=== PATIENT | female | born 1970 | race Caucasian/White ===

== ENCOUNTER 2020-10-19 19:50 | Emergency (ER) | payer OTHER, SELFPAY ==
[2020-10-19 20:02] VITALS: BP 131/91; PULSE 91; RESP 14; TEMP 37.1; O2SAT 97; BMI 39.0
--- NOTE | 2020-10-19 20:14 | ED_ITS ---
HPI - COVID General: Chief Complaint: COVID symptoms Stated Complaint: covid symptoms Time Seen by Provider: 10/19/20 20:10 Triage information: Has fever, cough or shortness of breath . Exposure to COVID + person last 14 days History of Present Illness: HPI Narrative: Patient is a 50-year-old female comes to the ED with Covid symptoms. st medical history of hypertension and migraines. She endorses having a cough, loss of taste and smell, fever and some diarrhea that started approximately 1 week ago. Pa She denies any chest pain, shortness of breath, abdominal pain, nausea/vomiting, bladder or bowel symptoms. She takes Tylenol or ibuprofen at home to treat fevers. Patient describes her cough is sometimes productive with some green sputum, but mostly dry cough. COVID 19 common symptoms: positive fever(s), productive cough, body aches, loss of sense of smell and/or taste and diarrhea; negative chills, non-productive cough, dyspnea, fatigue, headache(s), throat pain, nasal congestion, nausea or vomiting COVID 19 other sytmptoms: negative chest pain COVID Results: SARS-CoV-2 RNA (RT-PCR) Pending 10/19/20 20:52 10/19/20 Review of Systems Const: Reports: fever(s) and body aches; Denies: chills or fatigue Eyes: Denies: change in vision or eye discomfort ENMT: Denies: throat pain, odynophagia, nasal discharge or nasal congestion Card: Denies: chest pain, palpitations, edema, swelling of feet/ankles, dyspnea on exertion or orthopnea Resp: Reports: productive cough; Denies: dyspnea or non-productive cough GI: Reports: diarrhea; Denies: abdominal pain, nausea, vomiting, constipation or hematochezia : Denies: flank pain, dysuria or hematuria Musc: Denies: neck pain, back pain or extremity swelling Skin/Breast: Denies: rash or new lesions Neuro: Denies: headache(s), numbness in extremities or weakness in extremities Physical Exam Const: COMMON NORMALS: no acute distress, patient oriented x3, healthy appearing and alert GENERAL APPEARANCE: cooperative and comfortable HENMT: COMMON NORMALS: normocephalic HEAD & SCALP: normocephalic MOUTH: Normal oral and palatal mucosa present THROAT: posterior oropharynx normal and uvula midline Neck/C-Spine: COMMON NORMALS: supple GENERAL: Yes normal visual inspection Resp: COMMON NORMALS: normal respiratory effort, No retractions, No use of accessory muscles and clear to auscultation bilaterally EFFORT & INSPECTION: Yes able to speak in complete sentences, No tachypneic, No respiratory distress and No labored AUSCULTATION: clear to auscultation bilaterally Cardio: COMMON NORMALS: regular rate, regular rhythm, S1 normal heart sound present, S2 normal heart sound present, No gallops present (Cardio), No clicks present (Cardio), No murmurs present (Cardio) and Peripheral pulses 2+ throughout RATE: regular rate RHYTHM: regular rhythm HEART SOUNDS: S1 normal heart sound present and S2 normal heart sound present PERIPHERAL PULSES: Peripheral pulses 2+ throughout GI: COMMON NORMALS: Normal to inspection, nondistended, normoactive bowel sounds present, Soft to palpation, non-tender and no masses PALPATION: Yes Soft to palpation : COMMON NORMALS: Yes no CVA tenderness BLADDER/KIDNEY EXAM: Yes no CVA tenderness Back/Pelvis: COMMON NORMALS: no CVA tenderness Extremity: COMMON NORMALS: normal to inspection and no pedal edema Neuro: COMMON NORMALS: patient oriented x3 and moves all extremities SENSORIUM/ORIENTATION: Yes alert Skin: GENERAL SKIN EXAM: dry skin Course Vital Signs: Vital signs: Vital Signs Temperature 98.8 F 10/19/20 20:02 Pulse Rate 91 10/19/20 20:02 Respiratory Rate 17 10/19/20 20:52 Blood Pressure 131/91 10/19/20 20:02 Pulse Oximetry 97 10/19/20 20:52 MDM - COVID MDM Narrative: Medical decision making narrative: Patient is a 50-year-old female comes to the ED with Covid symptoms. Vitals stable and patient appears nontoxic. Lungs clear to auscultation bilaterally. Chest x-ray shows no acute findings or infiltrates. Covid [facility] lab pending. Patient was discharged and given self quarantine instructions. Return to ED precautions given. Follow-up with PCP in 7 to 10 days. Patient understood and agree with plan. Imaging Data: CXR: Attestation: I personally reviewed and interpreted this imaging study as follows: My impression: No acute findings on infiltrates seen. COVID Results: SARS-CoV-2 RNA (RT-PCR) Pending 10/19/20 20:52 10/19/20 Discharge Plan Discharge Patient Disposition: Home Clinical Impression: Upper respiratory infection Qualifiers: URI type: unspecified viral URI Qualified Code(s): J06.9 - Acute upper respiratory infection, unspecified Condition: Stable Discharge Orders: Discharge ED (Routine); Ordered 10/19/20 Ordered By: Donnell Roberts Discharge Diet: Regular Discharge Activity: Limit activity as instructed Patient Instructions: Upper Respiratory Infection (ED) Activity Restrictions/Additional Instructions: Follow-up with medical provider as directed in 7-10 days. COVID testing was performed and sent to lab and results will be back in 1 to 2 days. [facility] should contact you to let you know Covid results, but you can also contact [facility] to find out results as well. Self quarantine until you get Covid results. If positive self quarantine for the next 7 days. Take ibuprofen or Tylenol for fevers. Drink plenty of fluids and stay hydrated. Symptom management with agze-yys-mzkbuam cough and nasal decongestant meds. Return to the ER or your medical provider if condition worsens. Please read and understand discharge instructions. If any questions, please ask Coding Level of Care Code ED Student Records Coordinator for Jone Urena Exam Comprehensive
--- NOTE | 2020-10-19 20:24 | XRR_ITS ---
PROCEDURE INFORMATION: Exam: XR Chest, 1 View Exam date and time: 10/19/2020 8:58 PM Age: 50 years old Clinical indication: Patient HX: Cough, fever, SOB, covid symptoms TECHNIQUE: Imaging protocol: XR of the chest Views: 1 view. COMPARISON: No relevant prior studies available. FINDINGS: Lungs: There is a subtle hazy airspace opacity in the left lung base, which may represent atelectasis or pneumonia in the adequate clinical setting. No pleural effusion or pneumothorax. Pleural spaces: See Lungs finding. Heart/Mediastinum: Unremarkable. No cardiomegaly. Bones/joints: Unremarkable. XR/XR chest 1V portable [id number] IMPRESSION: Subtle left basilar atelectasis versus early pneumonia. Clinical correlation is recommended.
[2020-10-19 20:52] VITALS: RESP 17; O2SAT 97
[2020-10-22 14:19] LABS: Coronavirus Test Green County Detected
--- NOTE | 2020-10-22 16:17 | PC.NURSE ---
pt called and informed of the results of her covid test
== END 2020-10-19 21:30 | disposition home or self-care (01) ==
PROVIDERS: Emergency Provider Physician Assistant
DX: U07.1 COVID-19 (principal)
CPT/HCPCS: 71045; 87635; 99283

== ENCOUNTER → 2021-11-30 16:05 | Outpatient (BNVA) | payer OTHER, SELFPAY | PROVIDERS: PCP Family Medicine; Visit Provider Surgery | DX: L72.3 Sebaceous cyst (principal) | CPT/HCPCS: 88304 ==

== ENCOUNTER → 2021-12-10 14:03 | Outpatient (BNVA) | payer OTHER, SELFPAY | PROVIDERS: PCP Family Medicine; Visit Provider Surgery | DX: Z98.890 Other specified postprocedural states (principal) ==

== ENCOUNTER → 2021-12-14 10:55 | Outpatient (BNVA) | payer OTHER, SELFPAY | PROVIDERS: PCP Family Medicine; Visit Provider Surgery | DX: Z98.890 Other specified postprocedural states (principal) ==

== ENCOUNTER 2022-10-23 17:17 | Emergency (ER) | payer OTHER, SELFPAY ==
[2022-10-23 17:22] VITALS: BP 156/105; PULSE 90; RESP 18; TEMP 36.6; O2SAT 99
--- NOTE | 2022-10-23 17:26 | W.ED.SOB ---
HPI - SOB/Dyspnea General: Chief Complaint: Shortness of Breath/Dyspnea Stated Complaint: CP, Upper back pain Time Seen by Provider: 10/23/22 17:26 History of Present Illness: HPI Narrative: Ms. Feliz is a 52-year-old lady with history of hypertension and secondhand smoke exposure presenting to the emergency department due to chest pain and generalized malaise. She does report earlier this week feeling generally unwell. Today she was at the store after eating when she had sudden onset of shortness of breath, chest pressure, pain in her upper back, radiation to the bilateral arms and abnormal feeling. Intensity symptoms is moderate to severe. Course has persisted. No other specific changes in health, exacerbating, or alleviating factors identified. Onset (ago): day(s) Timing: constant Severity: moderate Exacerbating factors: nothing Relieving factors: nothing Associated symptoms: Reports chest pain and other Review of Systems General: Reports: 10 or more systems reviewed and unremarkable except in HPI and below Card: Reports: chest pain [facility] ED PFSH: Medical History Sebaceous cyst Family History Other Cancer Chronic kidney disease (CKD) Diabetes Denies family history of CAD (coronary artery disease) Stroke Social History Smoking and tobacco status: never smoked Alcohol intake: never Lives independently: Yes Household members: none Physical Exam Const: COMMON NORMALS: alert GENERAL APPEARANCE: cooperative and well developed HENMT: COMMON NORMALS: normocephalic and atraumatic HEAD & SCALP: normocephalic and atraumatic Eye: COMMON NORMALS: conjunctivae normal CONJUNCTIVA: Yes conjunctivae normal SCLERA: sclerae normal Neck/C-Spine: COMMON NORMALS: supple GENERAL: Yes trachea midline Resp: COMMON NORMALS: clear to auscultation bilaterally EFFORT & INSPECTION: Yes able to speak in complete sentences AUSCULTATION: clear to auscultation bilaterally Cardio: COMMON NORMALS: regular rate and regular rhythm RATE: regular rate RHYTHM: regular rhythm GI: COMMON NORMALS: Soft to palpation PALPATION: Yes Soft to palpation and No Tenderness to palpation present (GI) Extremity: GENERAL: Yes normal exam except as noted and No edema Neuro: COMMON NORMALS: moves all extremities SENSORIUM/ORIENTATION: Yes alert and No Orientation impaired Psych: COMMON NORMALS: mental status grossly normal and Normal thought process present THOUGHT PROCESS: Normal thought process present Course Vital Signs: Vital signs: Vital Signs Temperature 97.8 F 10/23/22 17:22 Pulse Rate 69 10/23/22 21:07 Respiratory Rate 18 10/23/22 21:07 Blood Pressure 160/85 10/23/22 21:07 Pulse Oximetry 99 10/23/22 21:07 Oxygen Delivery Me thod 10/23/22 17:22 MDM - SOB/Dyspnea Medical Decision Making 52-year-old lady presenting with sudden onset of generalized illness including chest discomfort. Exam as above. EKG notable for sinus rhythm with nonspecific ST segment abnormalities, normal axis and intervals, no STEMI. Labs with no significant hematologic or metabolic abnormalities explain symptoms. Negative range 2-hour delta troponin. Chest x-ray with no lobar consolidation or pneumothorax. Patient improved with aspirin, hydralazine, Toradol, fluids. Most likely etiology of patient's symptoms is unclear, unspecified chest pain. Patient is not low risk by heart score. The results of ED evaluation were discussed with the patient including possible disposition options. I discussed risk stratification by heart score and estimated risk of major adverse cardiac events. The patient wishes to proceed with outpatient management. I discussed prescriptions and/or symptomatic cares (if applicable) including appropriate and responsible use, followup plan, and return precautions. The patient verbalized understanding and felt safe for discharge. Medical Records I reviewed the patient's medical records. Lab Data I reviewed the patient's lab results. 10/23/22 18:05 10/23/22 18:05 Labs/Radiology: Radiology Impressions Chest X-Ray 10/23/22 17:36 IMPRESSION: No acute findings. Laboratory Results WBC 8.8 10^3/uL (4.0-10.0) 10/23/22 18:05 RBC 4.41 10^6/uL (4.1-5.3) 10/23/22 18:05 Hgb 12.7 g/dL (11.5-15.3) 10/23/22 18:05 Hct 40.0 % (37.0-47.0) 10/23/22 18:05 MCV 90.7 fl (81-99) 10/23/22 18:05 MCH 28.8 pg (28.0-34.0) 10/23/22 18:05 MCHC 31.8 g/dL (30.0-36.0) 10/23/22 18:05 RDW 14.3 % (12.1-15.1) 10/23/22 18:05 Plt Count 371 10^3/cmm (130-400) 10/23/22 18:05 MPV 10.7 fL (7.4-10.4) H 10/23/22 18:05 Neut % (Auto) 64.4 % 10/23/22 18:05 Lymph % (Auto) 21.9 % 10/23/22 18:05 [place] % (Auto) 9.8 % 10/23/22 18:05 Eos % (Auto) 3.0 % 10/23/22 18:05 Baso % (Auto) 0.7 % 10/23/22 18:05 Neut # (Auto) 5.64 10^3/uL (1.8-7.7) 10/23/22 18:05 Lymph # (Auto) 1.9 10^3/uL (0.8-4.8) 10/23/22 18:05 [place] # (Auto) 0.9 10^3/uL (0.2-0.9) 10/23/22 18:05 Eos # (Auto) 0.3 10^3/uL (0.0-0.8) 10/23/22 18:05 Baso # (Auto) 0.1 10^3/uL (0.0-0.1) 10/23/22 18:05 Nucleated RBC % (auto) 0 % 10/23/22 18:05 Nucleated RBCs # 0.0 /100WBC 10/23/22 18:05 Sodium 139 mmol/L (136-145) 10/23/22 18:05 Potassium 4.3 mmol/L (3.5-5.1) 10/23/22 18:05 Chloride 103 mmol/L (98-107) 10/23/22 18:05 Carbon Dioxide 27 mmol/L (22-29) 10/23/22 18:05 Anion Gap 13.3 (5-19) 10/23/22 18:05 BUN 18 mg/dL (6-20) 10/23/22 18:05 Creatinine 1.0 mg/dL (0.5-0.9) H 10/23/22 18:05 GFR Calculation 58.5 mL/min (90-130) L 10/23/22 18:05 Glucose 85 mg/dL (65-115) 10/23/22 18:05 Calculated Osmolality 289 mOsm/kg (285-295) 10/23/22 18:05 Calcium 9.2 mg/dL (8.5-10.5) 10/23/22 18:05 Total Bilirubin 0.2 mg/dL (0.15-1.2) 10/23/22 18:05 AST 23 U/L (0-32) 10/23/22 18:05 ALT 21 U/L (0-33) 10/23/22 18:05 Alkaline Phosphatase 143 U/L (35-105) H 10/23/22 18:05 Troponin T Baseline 6 ng/L (0-10) 10/23/22 18:05 Troponin T 120 Minute 6.00 ng/L (0-10) 10/23/22 19:40 Delta Troponin T 0 ABS# (0-10) 10/23/22 19:40 NT-Pro-B Natriuret Pep 63 pg/mL (0-125) 10/23/22 18:05 Total Protein 6.7 g/dL (6.6-8.7) 10/23/22 18:05 Albumin 4.2 g/dL (3.5-5.2) 10/23/22 18:05 Globulin 2.5 g/dL (1.3-4.6) 10/23/22 18:05 Lipase 35 U/L (13-60) 10/23/22 18:05 Influenza Type A Ag negative (Negative) 10/23/22 18:05 Influenza Type B Ag negative (Negative) 10/23/22 18:05 SARS-CoV-2 Ag (Rapid) negative (Negative) 10/23/22 18:05 Discharge Plan Discharge Patient Disposition: Home Clinical Impression: Chest pain, Hypertension Condition: Stable Prescriptions: New Norvasc 5 mg tablet 5 mg PO DAILY Qty: 30 0RF No Action venlafaxine 150 mg capsule,extended release 24hr 150 mg PO DAILY metoprolol succinate 50 mg tablet extended release 24 hr 50 mg PO DAILY multivitamin Tablet 1 tab PO DAILY Discharge Orders: Discharge ED (Routine); Ordered 10/23/22 Ordered By: Jose Bates Referrals: Jeffery Harper [Primary Care Provider] - Discharge Diet: Usual diet Discharge Activity: Resume usual activity Patient Instructions: Chest Pain (ED), Hypertension (ED) Activity Restrictions/Additional Instructions: Thank you for visiting the emergency department. You were seen and evaluated for an episode of chest discomfort. The exact cause of the symptoms is unclear. As discussed this does require further evaluation which you are choosing to have an outpatient setting. I will message case management. Please follow-up with your primary care provider. Return to the emergency department for worsening symptoms or anything else that you are concerned about and feel needs emergency department evaluation. Coding Level of Care Code ED Deflash And Wash Operator for Jone Urena
--- NOTE | 2022-10-23 17:36 | XRR_ITS ---
PROCEDURE INFORMATION: Exam: XR Chest Exam date and time: 10/23/2022 6:02 PM Age: 52 years old Clinical indication: Pain; Chest pressure; Additional info: Cp TECHNIQUE: Imaging protocol: Radiologic exam of the chest. Views: 1 view. COMPARISON: CR XR chest 1V portable [id number] 10/19/2020 8:47 PM FINDINGS: Lungs: Unremarkable. No consolidation. Pleural spaces: Unremarkable. No pleural effusion. No pneumothorax. Heart/Mediastinum: Unremarkable. No cardiomegaly. Bones/joints: Unremarkable. XR/XR chest 1V portable [id number] IMPRESSION: No acute findings.
--- NOTE | 2022-10-23 17:40 | ECG_ITS ---
[facility] Test Date: 2022-10-23 Pat Name: Manuela Feliz Department: Room: Gender: Female Leadite Heater: : 1970 Requested By: Jose Bates Order Number: [id number] Rahel MD: Praveen Duran M.D. Measurements Intervals [place] Rate: 71 P: 24 WI: 176 QRS: 1 QRSD: 95 T: 31 QT: 390 QTc: 427 Interpretive Statements SINUS RHYTHM WITH SINUS ARRHYTHMIA POSSIBLE RIGHT VENTRICULAR CONDUCTION DELAY [RSR (QR) IN V1/V2] No previous ECG available for comparison Electronically Signed On 10-23-2022 19:33:52 UTILITY SERVICE WORKER by Praveen Duran M.D. [email or web address] [facility] [email or web address] health system east [email or web address]/store/[id number]
[2022-10-23 18:15] LABS: Basophils # 0.1 10^3/uL (0.0-0.1); Basophils % 0.7 %; Eosinophils # 0.3 10^3/uL (0.0-0.8); Hemoglobin 12.7 g/dL (11.5-15.3); Lymphocytes # 1.9 10^3/uL (0.8-4.8); Lymphocytes % 21.9 %; Mean Corpuscular HGB Conc 31.8 g/dL (30.0-36.0); Mean Corpuscular Hemoglobin 28.8 pg (28.0-34.0); Mean Corpuscular Volume 90.7 fl (81-99); Mean Platelet Volume 10.7 fL (7.4-10.4); Monocytes # 0.9 10^3/uL (0.2-0.9); Monocytes % 9.8 %; Neutrophils # 5.64 10^3/uL (1.8-7.7); Neutrophils % 64.4 %; Nucleated Red Blood Cells % 0 %; Platelet Count 371 10^3/cmm (130-400); Red Blood Count 4.41 10^6/uL (4.1-5.3); Red Cell Distribution Width 14.3 % (12.1-15.1); White Blood Count 8.8 10^3/uL (4.0-10.0)
[2022-10-23 18:37] LABS: Influenza A by IFA negative (Negative); Influenza B by IFA negative (Negative); SARS Covid-2 Antigen negative (Negative)
[2022-10-23 18:38] LABS: Troponin(5th) Baseline 6 ng/L (0-10)
[2022-10-23 18:47] LABS: Alanine Aminotransferase 21 U/L (0-33); Albumin Level 4.2 g/dL (3.5-5.2); Alkaline Phosphatase 143 U/L (35-105); Anion Gap 13.3 (5-19); Aspartate Amino Transferase 23 U/L (0-32); Blood Urea Nitrogen 18 mg/dL (6-20); Calcium 9.2 mg/dL (8.5-10.5); Carbon Dioxide 27 mmol/L (22-29); Chloride 103 mmol/L (98-107); Creatinine Clr Calc Pharmacy 69.6703; Globulin 2.5 g/dL (1.3-4.6); Glomerular Filtration Rate 58.5 mL/min (90-130); Glucose 85 mg/dL (65-115); Lipase 35 U/L (13-60); NT Pro B Type Natriuretic Pept 63 pg/mL (0-125); Osmolality Calculated 289 mOsm/kg (285-295); Potassium 4.3 mmol/L (3.5-5.1); Sodium 139 mmol/L (136-145); Total Bilirubin 0.2 mg/dL (0.15-1.2); Total Protein 6.7 g/dL (6.6-8.7)
[2022-10-23 19:00] VITALS: BP 133/90; PULSE 65; RESP 18; O2SAT 100
[2022-10-23] MEDS: aspirin 81 mg Chew Tablet 324 MG PO (19:47)
[2022-10-23] MEDS: sodium chloride 0.9% 1,000 ML 999 ML IV (19:48)
[2022-10-23] MEDS: ketorolac 30 mg/mL INJ 15 MG IVP (19:48)
[2022-10-23 20:00] VITALS: BP 160/82; PULSE 66; RESP 18; O2SAT 100
[2022-10-23] MEDS: hyDRALAzine 25 mg Tablet PO (20:49)
[2022-10-23 21:07] VITALS: BP 160/85; PULSE 69; RESP 18; O2SAT 99
[2022-10-23 21:43] LABS: Troponin 5 2HR Delta 0 ABS# (0-10)
--- NOTE | 2022-10-26 08:12 | DCPLANNER ---
Addendum entered by Montserrat Garcia 12/01/22 09:30: Patient had a stress and echo - patient did attend both appointments Addendum entered by Montserrat Garcia 11/17/22 15:24: Patient has a follow up appointment scheduled for a stress test for Wednesday, November 30, 2022 at 7:30 Patient has a follow up appointment scheduled for an echo for Wednesday, November 30, 2022 at 6:30. Addendum entered by Montserrat Garcia 10/26/22 08:14: marine service manager also had an order to schedule an outpatient echo cardiogram for patient. marine service manager faxed signed order to centralized scheduling, who will call patient with appointment information. Original Note: marine service manager had message to schedule an out patient stress test for patient. marine service manager faxed signed order to centralized scheduling, who will call patient with appointment information.
== END 2022-10-23 21:08 | disposition home or self-care (01) ==
PROVIDERS: Emergency Provider Emergency Medicine; PCP Family Medicine
DX: R07.9 Chest pain, unspecified (principal); I10 Essential (primary) hypertension; Z20.822 Contact with and (suspected) exposure to COVID-19
CPT/HCPCS: 36415; 71045; 80053; 83690; 83880; 84484; 85025; 87426; 87804; 93005; 96361; 96374; 99285; J1885; J7030

== ENCOUNTER 2022-11-30 06:06 | Outpatient (CLI) | payer OTHER, SELFPAY ==
--- NOTE | 2022-11-30 | ECG_ITS ---
[facility] Test Date: 2022-11-30 Pat Name: Manuela Feliz Department: Room: Gender: Female Boring And Filling Machine Operator: : 1970 Requested By: Kristian Tubbs Order Number: [id number] Rahel MD: Abdifatah Ballesteros M.D. Interpretive Statements NAME OF STUDY: LEXISCAN SESTAMIBI STRESS TEST INDICATION: [Chest Pain, ] Procedure: At the baseline, the blood pressure was 146/77 mmHg with a heart rate of 57 bpm. The electrocardiogram showed normal sinus rhythm, normal axis with normal ST and T's. The Lexiscan was infused over a period of 20 seconds. A total of 0.4 mg of Lexiscan was infused. The stress phase was continued for a total of 5 minutes. Heart rate was at the end of stress phase was 60 bpm and a blood pressure of 126/64 mmHg. The EKG at the peak infusion revealed normal sinus rhythm with no significant ST-T wave changes. Sestamibi was injected 20 seconds after the Lexiscan infusion. Blood pressure at the end of recovery phase was 144/68 mmHg with a heart rate of 66 bpm. Conclusion: 1. Normal EKG response to Lexiscan infusion 2. No Lexiscan induced chest pain or cardiac arrhythmia. 3. Normal blood pressure and heart rate response. 4. Sestamibi/sestamibi perfusion scan pending; see separate report. Electronically Signed On 12-12-2022 14:33:33 CDT by Abdifatah Ballesteros M.D. [id number]
--- NOTE | 2022-11-30 06:19 | USCV_ITS ---
Manuela Feliz Age: 52 Gender: F : 1970 Exam Date: 11/30/2022 06:25 Ordering Phys: Kristian Solano DO Technologist: Exam Location: [facility] Indication: chest pain BP: 140 / 84 HR: 66 Rhythm: Sinus Technical Quality: Adequate MEASUREMENTS (Male / Female) Normal Values 2D ECHO LV Diastolic Diameter PLAX 4.4 cm 4.2 - 5.9 / 3.9 - 5.3 cm LV Systolic Diameter PLAX 2.7 cm IVS Diastolic Thickness 1.4 cm 0.6 - 1.0 / 0.6 - 0.9 cm IVS Systolic Thickness 1.5 cm LVPW Diastolic Thickness 1.2 cm 0.6 - 1.0 / 0.6 - 0.9 cm LVPW Systolic Thickness 1.6 cm LVOT Diameter 2.1 cm LV Ejection Fraction 2D Teich 68.1 % LV Ejection Fraction MOD 2C 46.6 % LV Ejection Fraction 2C AL 45.7 % LA Diameter 3.8 cm IVC Diameter 0.9 cm M-MODE Aortic Annulus Diameter 3.7 cm LA Ao Ratio MM 1.1 MV E Point Septal Separation 1.0 cm DOPPLER AV Peak Velocity 166.0 cm/s LVOT Peak Velocity 101.0 cm/s AV Area Cont Eq vti 2.3 cm squared AV Area Cont Eq pk 2.1 cm squared MV Area PHT 5.0 cm squared Mitral E to A Ratio 0.7 MV E' Velocity 41.0 cm/s Mitral E to MV E' Ratio 6.3 Mitral E to LV E' Lateral Ratio 7.0 Mitral E to LV E' Septal Ratio 5.7 TR Peak Velocity 182.7 cm/s TR Peak Gradient 13.3 mmHg TV Peak E Velocity 85.0 cm/s Right Atrial Pressure 3.0 mmHg Pulmonary Artery Systolic Pressu 16.3 mmHg RV Acceleration Time 0.1 s FINDINGS Left Ventricle Normal left ventricular size and systolic function, EF 55 %. No regional wall motion abnormalities. Mild left ventricular hypertrophy. Grade I/IV diastolic dysfunction (abnormal relaxation filling pattern), normal to mildly elevated filling pressures. Right Ventricle The right ventricle is normal in size and function. Right Atrium The right atrium is normal in size. Left Atrium The left atrium is normal in size. Mitral Valve Trace mitral valve regurgitation. Aortic Valve No gross abnormalities noted Tricuspid Valve Trace tricuspid valve regurgitation. Estimated pulmonary artery peak systolic pressure of 16 mmHg Pulmonic Valve No gross abnormalities noted Pericardium Normal pericardium without effusion. Aorta Normal ascending aorta dimension. IVC Normal IVC dimension with <50% respiratory change of the inferior vena cava. Estimated RA pressure of 8 mmHg CONCLUSIONS Normal left ventricular size and systolic function, EF 55 %. No regional wall motion abnormalities. Mild left ventricular hypertrophy. Grade I/IV diastolic dysfunction (abnormal relaxation filling pattern), normal to mildly elevated filling pressures. Trace mitral valve regurgitation. Trace tricuspid valve regurgitation. Estimated pulmonary artery peak systolic pressure of 16 mmHg. There is no pericardial effusion. There are no intracardiac masses. No similar previous studies are available for comparison Dr Praveen Duran MD FACC (Electronically Signed) Final Date: 01 December 2022 22:54 S
[2022-11-30 07:15] VITALS: BMI 38.2
--- NOTE | 2022-11-30 07:18 | NMCV_ITS ---
NM suzanne perf SPECT r/s* [id number] Manuela Feliz Age: 52 Gender: F : 1970 Exam Date: 11/30/2022 07:54 Ordering Phys: Kristian Solano DO Technologist: CORDELIA Bourgeois Exam Location: [facility] Indications: CHEST PAIN STRESS TEST Please see separate stress test report in [facility] for full findings IMAGE PROTOCOL Rest/Stress 1 Lexiscan Day Radiopharmaceutical Dose (mCi) Administration Site Administered by Rest: Tc-99m 10.7 IV CORDELIA Mccracken Sestamibi Stress:Tc-99m 33.0 IV CORDELIA Mccracken Sestamibi Rest: 30-Nov-2022 60 Discovery 630 Stress: 30-Nov-2022 30 Discovery 630 0.4mg Lexiscan. Images obtained in supine and prone position. SPECT RESULTS Technical Quality: Excellent Raw Data Analysis: Breast attenuation Image Corrections: No attenuation or motion correction applied Summed Stress Score: 3 Summed Rest Score: 0 Summed Difference Score: 3 PERFUSION FINDINGS There is a small in size reversible perfusion defect noted in inferolateral wall. This is consistent with small area of ischemia in left circumflex artery territory. FUNCTIONAL RESULTS (calculated via Gated SPECT) Stress Image LV EF (%): 81 Stress EDV (mL):68 TID: 0.97 Stress ESV (mL):13 FUNCTIONAL FINDINGS: There is normal left ventricular systolic function. IMPRESSIONS 1. Small sized area of ischemia noted in left circumflex artery territory. 2. LV systolic function is normal Abdifatah Ballesteros MD (Electronically Signed) Final Date: 30 November 2022 11:11 S
[2022-11-30] MEDS: regadenoson 0.4 Mg/5 ml Syringe IVP (08:26)
[2022-11-30] MEDS: ondansetron 2 mg/ML SDV 2 mL 4 MG IVP (08:34)
[2022-11-30 08:47] VITALS: BP 144/68; PULSE 64
== END 2022-11-30 06:07 | disposition home or self-care (01) ==
LOC: RAD 06:09 → CDL 06:12
PROVIDERS: PCP Family Medicine; Visit Provider Family Medicine
DX: R07.9 Chest pain, unspecified (principal); I08.1 Rheumatic disorders of both mitral and tricuspid valves
CPT/HCPCS: 36415; 78452; 93017; 93306; 96374; 96375; A9500; J2405; J2785

== ENCOUNTER → 2022-12-07 10:18 | Outpatient (BNVA) | payer OTHER, SELFPAY | PROVIDERS: PCP Family Medicine; Visit Provider Family Medicine | DX: G47.10 Hypersomnia, unspecified (principal); I10 Essential (primary) hypertension; E55.9 Vitamin D deficiency, unspecified; D50.9 Iron deficiency anemia, unspecified; Z98.84 Bariatric surgery status; Z13.6 Encounter for screening for cardiovascular disorders; D51.9 Vitamin B12 deficiency anemia, unspecified | CPT/HCPCS: 80053; 80061; 82306; 82607; 82728; 83036; 83550; 84443 ==

== ENCOUNTER → 2022-12-23 13:26 | Outpatient (BNVA) | payer OTHER, SELFPAY | PROVIDERS: PCP Family Medicine; Visit Provider Internal Medicine Cardiovascular Disease | DX: R94.39 Abnormal result of other cardiovascular function study (principal); F41.1 Generalized anxiety disorder; I10 Essential (primary) hypertension; Z79.82 Long term (current) use of aspirin | CPT/HCPCS: 99203 ==

== ENCOUNTER → 2023-03-11 09:17 | Outpatient (BNVA) | payer OTHER, SELFPAY | PROVIDERS: PCP Family Medicine; Visit Provider Family Medicine | DX: T14.8XXA Other injury of unspecified body region, initial encounter (principal); W57.XXXA Bitten or stung by nonvenomous insect and other nonvenomous arthropods, initial encounter | CPT/HCPCS: 80053; 85025; 86003; 86008; 86618; 86666; 86757 ==

== ENCOUNTER → 2023-06-09 13:16 | Outpatient (BNVA) | payer OTHER, SELFPAY | PROVIDERS: PCP Family Medicine; Referring Provider Family Medicine; Visit Provider Surgery | DX: K92.1 Melena (principal); R14.0 Abdominal distension (gaseous); Z98.84 Bariatric surgery status | CPT/HCPCS: 99204 ==

== ENCOUNTER 2023-06-28 08:40 | Outpatient (CLI) | payer OTHER, SELFPAY ==
--- NOTE | 2023-06-28 08:50 | MM_ITS ---
WS: [id number] BILATERAL SCREENING DIGITAL TOMOSYNTHESIS MAMMOGRAM WITH CAD HISTORY: SCREENING COMPARISON: 09/17/2021 and 08/05/2020 Bilateral CC and MLO views with tomosynthesis and synthetic mammography submitted. Computer aided det ection analyzed. Breast composition: There are scattered areas of fibroglandular density. No suspicious masses, microc alcifications or architectural distortion. IMPRESSION: MM/[place] [id number] BI-RADS: 1-Negative FOLLOW UP: 1 Year Follow-up
== END 2023-06-28 08:41 | disposition home or self-care (01) ==
PROVIDERS: PCP Family Medicine; Visit Provider Family Medicine
DX: Z12.31 Encounter for screening mammogram for malignant neoplasm of breast (principal)
CPT/HCPCS: 77063; 77067

== ENCOUNTER 2023-07-08 08:41 | Day surgery (SDC) | payer OTHER, SELFPAY ==
--- NOTE | 2023-07-08 08:51 | W.PM.OPSUD ---
Surgery/Procedure H&P Update DATE OF PROCEDURE: July 08, 2023 DATE H&P PERFORMED: 06/09/23 H&P UPDATE INFORMATION: I have reviewed H&P completed within last 30 days, I have examined patient prior to procedure, No changes to prior documentation and H&P is in [facility] EMR on date indicated PLANNED PROCEDURE: Operation Date: 07/08/23 09:55 Proposed Procedures p [id number] egd [id number] colon G0121 screen colon A risk K92.1,Z12.11,R14.0(Not Applicable) - Sanjay Narayan MD s Colonoscopy(Not Applicable) - Sanjay Narayan MD
[2023-07-08 09:00] VITALS: BP 177/97; PULSE 61; RESP 18; TEMP 36.4; O2SAT 98; BMI 40.6
[2023-07-08] MEDS: sodium chloride 0.9% 1,000 ML 30 ML IV (09:03)
--- NOTE | 2023-07-08 09:36 | ANES.PREANE2 ---
Pre-Anesthetic Assessment Height/Weight: Height 1.52 m Weight 94.347 kg Temp Pulse Resp BP Pulse Ox O2 Del Method 97.6 F 61 18 177/97 98 Room Air 07/08/23 09:00 07/08/23 09:00 07/08/23 09:00 07/08/23 09:00 07/08/23 09:00 07/08/23 09:00 Operation Date: 07/08/23 09:55 Proposed Procedures p [id number] egd [id number] colon G0121 screen colon A risk K92.1,Z12.11,R14.0(Not Applicable) - Sanjay Narayan MD s Colonoscopy(Not Applicable) - Sanjay Narayan MD Familial anesthetic complications: None Was Beta Clare taken within 24 hours: Yes Was Clonidine taken within 24 hours: N/A Last intake: Intake Last Liquid Date 07/07/23 Last Liquid Time 21:30 Last Solid Date 07/06/23 Last Solid Time 22:30 Social No alcohol and No tobacco Exam alert, oriented x 3, clear to auscultation bilaterally and regular rate & rhythm Airway Mallampati: Class I Dentition: other (front upper tooth missing) CV/HEM Hypertension GI hx gastric bypass Metabolic Morbid Obesity Anesthetic Plan ASA status: 3 Anesthesia: MAC Other: alpha-gal Risk of > 500 ml blood loss (7ml/kg in children): No Medications/Allergies Home Medications Medication Instructions Recorded Confirmed Last Taken Type multivitamin 1 tab PO DAILY 09/30/21 07/06/23 07/03/23 History aspirin 81 mg capsule 81 mg PO DAILY 12/23/22 07/06/23 Unknown History epinephrine 0.3 mg/0.3 mL 0.3 mg (0.3 mL) IM Q4H PRN 05/25/23 07/06/23 Unknown Rx injection, auto-injector (EpiPen anaphylaxis #2 ea 2-Selvin) amlodipine 5 mg tablet (Norvasc) 5 mg PO DAILY #90 tabs 06/07/23 07/06/23 07/08/23 Rx metoprolol succinate 50 mg 50 mg PO DAILY #90 tabs 06/07/23 07/06/23 07/08/23 Rx tablet,extended release 24 hr venlafaxine 150 mg 150 mg PO DAILY #90 caps 06/07/23 07/06/23 07/08/23 Rx capsule,extended release 24 hr venlafaxine 75 mg tablet,extended 75 mg PO QAM #90 tabs 06/07/23 07/06/23 07/08/23 Rx release 24 hr Allergies Allergy/AdvReac Type Severity Reaction Status Date / Time Alpha-Gal Allergy ALGY-Hives Verified 07/06/23 15:02 (Ytqyiryyn-Izbtt-4,3-Gala Penicillins Allergy ALGY-Rash Verified 06/09/23 12:23 Current Medications Generic Name Dose Route Start Last Admin Trade Name Marivel PRN Reason Stop Dose Admin Sodium Chloride 1,000 mls @ 30 mls/hr 07/08/23 09:00 07/08/23 09:03 Sodium Chloride 0.9% IV 30 mls/hr .Q24H SURAJ Administration PFSH Anesthesia Medical History Benign essential HTN JOY (generalized anxiety disorder) Sebaceous cyst Surgical History History of cholecystectomy 2008 - lap History of gastric bypass 2009 - Naren en Y History of tubal ligation 2013 Family History Other Cancer Chronic kidney disease (CKD) Diabetes Denies family history of CAD (coronary artery disease) Stroke Social History Smoking and tobacco/nicotine status: never used tobacco/nicotine Alcohol intake: never Substance/Drug Use: never Lives independently: Yes Household members: none Data Anesthesia Cardiac Studies: Echocardiogram 11/30/22 Sestamibi Stress Test (Cardiology) 11/30/22
[2023-07-08 11:02] VITALS: BP 121/81; PULSE 69; RESP 12; TEMP 36.4; O2SAT 97
[2023-07-08 11:17] VITALS: BP 132/81; PULSE 69; RESP 16; O2SAT 97
[2023-07-08 11:32] VITALS: BP 135/78; PULSE 70; RESP 16; O2SAT 97
--- NOTE | 2023-07-08 11:49 | FL_ITS ---
WS: [id number] BARIUM ENEMA SINGLE CONTRAST HISTORY: Incomplete colonoscopy COMPARISON: None available. FLUOROSCOPY TIME: 4min [id number] # of spot films: 18 Single contrast barium enema examination is performed post incomplete colonoscopy. On the electronics hardware design engineer image there is a large amount of air within the GI tract. Rectal tube was inserted without difficulty. Single contrast barium enema examination is performed. T he contrast flows into the distal colon. At the splenic flexure the contrast does not continue throug h the transverse colon due to the large amount of air that was placed during colonoscopy. This is con sistent with an air block. Despite moving the patient in different positions we were unable to procee d due to the large amount of air. As the patient was uncomfortable this study was terminated. The vis ualized GI tract is very tortuous with overlapping loops. No persistent masses are identified. No sig nificant diverticular disease. Normal postevacuation imaging. Prior cholecystectomy. IMPRESSION: 1. Incomplete barium enema due to the large amount of air remaining within the colon from the colonos copy. As the patient became uncomfortable and the contrast did not move the transverse colon the stud y was terminated. 2. The visualized distal colon is negative. Colon is markedly tortuous with overlapping loops but no strictures.
--- NOTE | 2023-07-08 13:15 | ANE.PACU2 ---
Inpatient post-anesthesia follow up: Airway intact: Yes Vital signs: Temperature 97.6 F Pulse Rate 70 Respiratory Rate 16 Blood Pressure 135/78 Pulse Oximetry 97 Oxygen Delivery Me thod Room Air Oxygen Flow Rate Fraction of Inspir ed Oxygen Hydration adequate: Yes Nausea and vomiting: No Pain level: 1 Mental status: Baseline
== END 2023-07-08 13:15 | disposition home or self-care (01) ==
PROVIDERS: PCP Family Medicine; Visit Provider Surgery
PROC: 0DJ08ZZ Inspection of Upper Intestinal Tract, Via Natural or Artificial Opening Endoscopic (ICD-10-PCS; CPT 43235; principal; 2023-07-08 09:55)
PROC: 0DJD8ZZ Inspection of Lower Intestinal Tract, Via Natural or Artificial Opening Endoscopic (ICD-10-PCS; CPT 45330; 2023-07-08 09:55)
DX: K92.1 Melena (principal); R14.0 Abdominal distension (gaseous); I10 Essential (primary) hypertension; Z98.84 Bariatric surgery status; Z79.82 Long term (current) use of aspirin
CPT/HCPCS: 43235; 45330; 74270; J1100; J1200; J2704; J7030

== ENCOUNTER → 2023-07-19 09:51 | Outpatient (BNVA) | payer OTHER, SELFPAY | PROVIDERS: PCP Family Medicine; Visit Provider Family Medicine | DX: Z01.419 Encounter for gynecological examination (general) (routine) without abnormal findings (principal) | CPT/HCPCS: 87624 ==

== ENCOUNTER → 2023-07-25 11:17 | Outpatient (BNVA) | payer OTHER, SELFPAY | PROVIDERS: PCP Family Medicine; Visit Provider Surgery | DX: Z09 Encounter for follow-up examination after completed treatment for conditions other than malignant neoplasm (principal) | CPT/HCPCS: 99213 ==

== ENCOUNTER → 2023-12-20 10:48 | Outpatient (BNVA) | payer OTHER, SELFPAY | PROVIDERS: PCP Family Medicine; Visit Provider Family Medicine | DX: I10 Essential (primary) hypertension (principal); Z13.6 Encounter for screening for cardiovascular disorders; F41.1 Generalized anxiety disorder | CPT/HCPCS: 80053; 80061; 82043; 85025 ==

== ENCOUNTER 2024-01-29 14:41 | Emergency (ER) | payer OTHER, SELFPAY ==
[2024-01-29 14:50] VITALS: BP 153/100; PULSE 93; RESP 17; TEMP 39.3; O2SAT 96; BMI 42.3
--- NOTE | 2024-01-29 15:03 | XRR_ITS ---
PROCEDURE INFORMATION: Exam: XR Chest Exam date and time: 01/29/2024 3:44 PM Age: 53 years old Clinical indication: Fever; Additional info: Possible sepsis TECHNIQUE: Imaging protocol: Radiologic exam of the chest. Views: 1 view. COMPARISON: CR XR chest 1V portable [id number] 10/23/2022 6:02 PM FINDINGS: Lungs: Unremarkable. No consolidation. Pleural spaces: Unremarkable. No pleural effusion. No pneumothorax. Heart/Mediastinum: Unremarkable. No cardiomegaly. Bones/joints: Unremarkable. XR/XR chest 1V portable [id number] IMPRESSION: No acute findings.
--- NOTE | 2024-01-29 15:07 | ED_ITS ---
HPI - Fever 2 General: Chief Complaint: Fever Stated Complaint: fever aches skin hurts Time Seen by Provider: 01/29/24 15:02 History of Present Illness: 53-year-old female comes in today for co mplaints of fever with bodyaches since Tuesday. Patient reports that she has had a cough with some congestion. Patient has also had a pilonidal cyst has been draining. Patient appears nontoxic. Patient appears in mild pain. Patient has a history of alpha gal syndrome. Patient also has a history of high blood pressure and depression. Review of Systems 2 General: Reports: 10 or more systems reviewed and unremarkable except in HPI and below PFSH ED 2 PFSH: Medical History (Updated 01/29/24 @ 17:28 by AAYUSH Marr) Psychiatric care JOY (generalized anxiety disorder) Benign essential HTN Sebaceous cyst Surgical History History of gastric bypass 2009 - Naren en Y History of cholecystectomy 2008 - lap History of tubal ligation 2012 Family History Other Cancer Chronic kidney disease (CKD) Diabetes Denies family history of CAD (coronary artery disease) Stroke Social History Smoking and tobacco/nicotine status: never used tobacco/nicotine Alcohol intake: never Substance/Drug Use: never Lives independently: Yes Household members: none Physical Exam 2 Const: COMMON NORMALS: alert HENMT: COMMON NORMALS: normocephalic HEAD & SCALP: normocephalic Neck/C-Spine: COMMON NORMALS: full ROM Chest: COMMONS NORMALS: normal inspection of the chest Resp: COMMON NORMALS: normal respiratory effort and clear to auscultation bilaterally AUSCULTATION: clear to auscultation bilaterally Cardio: COMMON NORMALS: regular rate and regular rhythm RATE: regular rate RHYTHM: regular rhythm GI: COMMON NORMALS: Soft to palpation and non-tender PALPATION: Yes Soft to palpation : COMMON NORMALS: Yes no CVA tenderness BLADDER/KIDNEY EXAM: Yes no CVA tenderness Back/Pelvis: COMMON NORMALS: no CVA tenderness Extremity: COMMON NORMALS: normal to inspection Neuro: SENSORIUM/ORIENTATION: Yes alert Skin: NARRATIVE SKIN EXAM: Mild erythema and drainage of sanguinous fluid from the open cyst in the pilonidal region of the right buttock. Course 2 Vital Signs: Vital signs: Vital Signs Temperature 102.8 F H 01/29/24 14:50 Pulse Rate 98 01/29/24 16:35 Respiratory Rate 17 01/29/24 14:50 Blood Pressure 162/96 01/29/24 16:35 Pulse Oximetry 99 01/29/24 16:35 Oxygen Delivery Me thod Room Air 01/29/24 16:35 MDM - Fever Medical Decision Making 53-year-old female comes in today for complaints of pain and discomfort generalized. Patient has also been fever with night sweats. Patient appears nontoxic. Patient does have a open pilonidal cyst to her right cleft area with some surrounding erythema. Differential diagnosis includes pneumonia, viral syndrome, pilonidal cyst, cellulitis. CBC was unremarkable. CMP did note some sodium of 132, lactic was 1.4, blood cultures were collected. Patient chest x- ray showed no acute findings. Abdominal CT showed no significant abnormalities except for some degenerative changes in L4-L5 area of the back. Respiratory panel noted no abnormalities. Believe patient's fever is probably secondary to the pilonidal cyst. Patient was given a gram of acetaminophen for fever which brought her temperature down to 100 ?F. Patient was also given 100 mg of doxycycline for the treatment of the infected pilonidal cyst. Patient will be continued on doxycycline at home with recommendations for follow-up with primary care in 3 to 5 days. Patient should return to ER for worsening symptoms. Patient reported understanding and agreed to plan. Lab Data 01/29/24 15:21 01/29/24 15:21 Radiology Impressions Chest X-Ray 01/29/24 15:03 IMPRESSION: No acute findings. Abdomen/Pelvis CT 01/29/24 15:55 IMPRESSION: 1. No acute findings.Non acute findings as described above. 2. Slight grade 1 degenerative anterolisthesis of L4 on L5. There is uncovering of the disc at the L4-L5 level and severe facet arthropathy contributing to moderate to severe canal stenosis. Laboratory Results WBC 3.76 10^3/uL (3.29-11.43) 01/29/24 15:21 RBC 4.53 10^6/uL (3.85-5.65) 01/29/24 15:21 Hgb 13.50 g/dL (11.27-16.99) 01/29/24 15:21 Hct 41.2 % (36-47) 01/29/24 15:21 MCV 90.9 fl (85-98) 01/29/24 15:21 MCH 29.8 pg (27-33) 01/29/24 15:21 MCHC 32.8 g/dL (30-55) 01/29/24 15:21 RDW 12.8 % (12.1-15.1) 01/29/24 15:21 Plt Count 201 10^3/cmm (157-399) 01/29/24 15:21 MPV 10.9 fL (7.4-10.4) H 01/29/24 15:21 Neut % (Auto) 74.1 % 01/29/24 15:21 Lymph % (Auto) 17.3 % 01/29/24 15:21 [place] % (Auto) 5.6 % 01/29/24 15:21 Eos % (Auto) 1.9 % 01/29/24 15:21 Baso % (Auto) 0.8 % 01/29/24 15:21 Neut # (Auto) 2.79 10^3/uL (1.8-7.7) 01/29/24 15:21 Lymph # (Auto) 0.7 10^3/uL (0.8-4.8) L 01/29/24 15:21 [place] # (Auto) 0.2 10^3/uL (0.2-0.9) 01/29/24 15:21 Eos # (Auto) 0.1 10^3/uL (0.0-0.8) 01/29/24 15:21 Baso # (Auto) 0.0 10^3/uL (0.0-0.1) 01/29/24 15:21 Nucleated RBC % (auto) 0 % 01/29/24 15:21 Nucleated RBCs # 0.0 /100WBC 01/29/24 15:21 Sodium 132 mmol/L (136-145) L 01/29/24 15:21 Potassium 4.5 mmol/L (3.5-5.1) 01/29/24 15:21 Chloride 97 mmol/L (98-107) L 01/29/24 15:21 Carbon Dioxide 25 mmol/L (22-29) 01/29/24 15:21 Anion Gap 14.5 (5-19) 01/29/24 15:21 BUN 12 mg/dL (6-20) 01/29/24 15:21 Creatinine 0.9 mg/dL (0.5-0.9) 01/29/24 15:21 GFR Calculation 65.8 mL/min (90-130) L 01/29/24 15:21 Glucose 110 mg/dL (65-115) 01/29/24 15:21 Calculated Osmolality 274 mOsm/kg (285-295) L 01/29/24 15:21 Lactic Acid 1.4 mmol/L (0.5-2.2) 01/29/24 15:21 Calcium 9.1 mg/dL (8.5-10.5) 01/29/24 15:21 Total Bilirubin 0.3 mg/dL (0.15-1.2) 01/29/24 15:21 AST 80 U/L (0-32) H 01/29/24 15:21 ALT 66 U/L (0-33) H 01/29/24 15:21 Alkaline Phosphatase 245 U/L (35-105) H 01/29/24 15:21 Total Protein 7.0 g/dL (6.6-8.7) 01/29/24 15:21 Albumin 3.9 g/dL (3.5-5.2) 01/29/24 15:21 Globulin 3.1 g/dL (1.3-4.6) 01/29/24 15:21 Urine Color Yellow (Yellow) 01/29/24 16:15 Urine Appearance Clear (CLEAR) 01/29/24 16:15 Urine pH 7 (5-7) 01/29/24 16:15 Ur Specific [place] 1.010 (1.005-1.030) 01/29/24 16:15 Urine Protein Neg (Negative) 01/29/24 16:15 Urine Glucose (UA) Norm (Normal) 01/29/24 16:15 Urine Ketones Negative (Negative) 01/29/24 16:15 Urine Blood Neg (Negative) 01/29/24 16:15 Urine Nitrate Negative (Negative) 01/29/24 16:15 Urine Bilirubin Neg (Negative) 01/29/24 16:15 Urine Urobilinogen Norm mg/dL (Negative) 01/29/24 16:15 Ur Leukocyte Esterase Negative (Negative) 01/29/24 16:15 Adenovirus (PCR) Not detected (NOT DETECT) 01/29/24 15:32 C. pneumoniae DNA (PCR) Not detected (NOT DETECT) 01/29/24 15:32 Coronavirus 229E (PCR) Not detected (NOT DETECT) 01/29/24 15:32 Human Metapneumovir PCR Not detected (NOT DETECT) 01/29/24 15:32 Influenza A (H1) PCR Not detected (NOT DETECT) 01/29/24 15:32 Influ A (H1/09) PCR Not detected (NOT DETECT) 01/29/24 15:32 Influenza A (H3) PCR Not detected (NOT DETECT) 01/29/24 15:32 Influenza Type A (PCR) Not detected (NOT DETECT) 01/29/24 15:32 Influenza Type B (PCR) Not detected (NOT DETECT) 01/29/24 15:32 M. pneumoniae (PCR) Not detected (NOT DETECT) 01/29/24 15:32 Parainfluenza 1 (PCR) Not detected (NOT DETECT) 01/29/24 15:32 Parainfluenza 2 (PCR) Not detected (NOT DETECT) 01/29/24 15:32 Parainfluenza 3 (PCR) Not detected (NOT DETECT) 01/29/24 15:32 Parainfluenza 4 (PCR) Not detected (NOT DETECT) 01/29/24 15:32 RSV Type A (PCR) Not detected (NOT DETECT) 01/29/24 15:32 RSV Type B (PCR) Not detected (NOT DETECT) 01/29/24 15:32 Entero/Rhino (PCR) Not detected (NOT DETECT) 01/29/24 15:32 SARS-CoV-2 (PCR) Not detected (NOT DETECT) 01/29/24 15:32 All radiology interpretation(s) finalized by discharge EKG Data EKG 1: I personally reviewed and interpreted this EKG as follows: EKG interpretation date: 01/29/24 EKG interpretation time: 15:30 Prior EKG tracings: not available for review Interpretation: EKG shows a sinus rhythm with a regular rate in the 90s. No ST elevation or ectopy otherwise is noted. No prior exam was available for comparison. Computer generated interpretation: Sinus rhythm, incomplete right bundle branch block, possible anterior myocardial infarction probably old, inferior myocardial infarction probably old, abnormal EKG, unconfirmed report. Discharge Plan Discharge Patient Disposition: Home Clinical Impression: Infected pilonidal cyst Condition: Stable Prescriptions: New doxycycline hyclate 100 mg tablet 100 mg PO BID 10 Days Qty: 20 0RF No Action multivitamin Tablet 1 tab PO DAILY Norvasc 5 mg tablet 5 mg PO DAILY Qty: 90 1RF metoprolol succinate 50 mg tablet extended release 24 hr 50 mg PO DAILY Qty: 90 1RF venlafaxine 150 mg tablet extended release 24hr 150 mg PO DAILY Qty: 90 1RF Rx Instructions: Take with 75mg tablet venlafaxine 75 mg tablet extended release 24hr 75 mg PO QAM Qty: 90 1RF Rx Instructions: Take with 150 mg epinephrine [EpiPen 2-Selvin] 0.3 mg/0.3 mL auto-injector 0.3 mg IM Q4H PRN (Reason: anaphylaxis) Qty: 2 1RF Discharge Orders: Discharge ED (Routine); Ordered 01/29/24 Ordered By: Cheng Bailey Referrals: Ann Marie Campos DO [Primary Care Provider] - Discharge Diet: Usual diet Patient Instructions: Abscess (ED) Activity Restrictions/Additional Instructions: Drink plenty water and fluids. Take antibiotics as directed. Follow-up with primary care in 3 days for recheck. Turn to ED for worsening symptoms such as inability to hold fluids down, cough or congestion. Coding Level of Care Code ED Design Lead for Jone Urena
--- NOTE | 2024-01-29 15:15 | ECG_ITS ---
[facility] Test Date: 2024-01-29 Pat Name: Manuela Feliz Department: Room: Gender: Female Gage Maker: : 1970 Requested By: Cheng Gupta Order Number: [id number] Rahel MD: Praveen Duran M.D. Measurements Intervals [place] Rate: 90 P: 23 IN: 147 QRS: -11 QRSD: 94 T: 50 QT: 325 QTc: 398 Interpretive Statements SINUS RHYTHM INCOMPLETE RIGHT BUNDLE BRANCH BLOCK [90+ ms QRS DURATION, TERMINAL R IN V1/V2, 40+ ms S IN I/aVL/V4/V5/V6] POSSIBLE ANTERIOR MYOCARDIAL INFARCTION , PROBABLY OLD [30 ms Q WAVE IN V3/V4, OR R < 0.2 mV IN V4] INFERIOR MYOCARDIAL INFARCTION , PROBABLY OLD [40+ ms Q WAVE AND/OR ST/T ABNORMALITY IN II/aVF] Compared to ECG 10/23/2022 17:40:27 Incomplete right bundle-branch block now present Myocardial infarct finding now present Sinus arrhythmia no longer present Electronically Signed On 01-30-2024 8:38:22 CDT by Praveen Duran M.D. [id number]
[2024-01-29 15:30] LABS: Basophils % 0.8 %; Eosinophils # 0.1 10^3/uL (0.0-0.8); Eosinophils % 1.9 %; Hematocrit 41.2 % (36-47); Lymphocytes # 0.7 10^3/uL (0.8-4.8); Lymphocytes % 17.3 %; Mean Corpuscular HGB Conc 32.8 g/dL (30-55); Mean Corpuscular Hemoglobin 29.8 pg (27-33); Mean Corpuscular Volume 90.9 fl (85-98); Mean Platelet Volume 10.9 fL (7.4-10.4); Monocytes # 0.2 10^3/uL (0.2-0.9); Monocytes % 5.6 %; Neutrophils # 2.79 10^3/uL (1.8-7.7); Neutrophils % 74.1 %; Nucleated Red Blood Cells % 0 %; Platelet Count 201 10^3/cmm (157-399); Red Blood Count 4.53 10^6/uL (3.85-5.65); Red Cell Distribution Width 12.8 % (12.1-15.1); White Blood Count 3.76 10^3/uL (3.29-11.43)
[2024-01-29 15:45] LABS: Alanine Aminotransferase 66 U/L (0-33); Albumin Level 3.9 g/dL (3.5-5.2); Alkaline Phosphatase 245 U/L (35-105); Anion Gap 14.5 (5-19); Aspartate Amino Transferase 80 U/L (0-32); Blood Urea Nitrogen 12 mg/dL (6-20); Calcium 9.1 mg/dL (8.5-10.5); Carbon Dioxide 25 mmol/L (22-29); Chloride 97 mmol/L (98-107); Creatinine Clr Calc Pharmacy 76.9609; Globulin 3.1 g/dL (1.3-4.6); Glomerular Filtration Rate 65.8 mL/min (90-130); Glucose 110 mg/dL (65-115); Osmolality Calculated 274 mOsm/kg (285-295); Potassium 4.5 mmol/L (3.5-5.1); Sodium 132 mmol/L (136-145); Total Bilirubin 0.3 mg/dL (0.15-1.2)
[2024-01-29 15:46] LABS: Lactic Sepsis W/Reflex 1.4 mmol/L (0.5-2.2)
[2024-01-29 15:48] LABS: Slide Review Slide Review Perform
--- NOTE | 2024-01-29 15:55 | CTR_ITS ---
PROCEDURE INFORMATION: Exam: CT Abdomen And Pelvis With Contrast Exam date and time: 01/29/2024 4:27 PM Age: 53 years old Clinical indication: Prior surgery; Surgery date: 6+ months; Surgery type: Gb; Pilonidal cyst, abnormal liver enzymes, infection TECHNIQUE: Imaging protocol: Computed tomography of the abdomen and pelvis with contrast. Radiation optimization: All CT scans at this facility use at least one of these dose optimization techniques: automated exposure control; mA and/or kV adjustment per patient size (includes targeted exams where dose is matched to clinical indication); or iterative reconstruction. Contrast material: OMNI 350; Contrast volume: 100 ml; Contrast route: INTRAVENOUS (IV); COMPARISON: RF FL barium enema [id number] 07/08/2023 12:17 PM RADIATION DOSE METRICS: Total DLP (mGy-cm): 987.25 FINDINGS: Liver: Normal. No mass. Gallbladder and bile ducts: The gallbladder has been removed. Pancreas: Normal. No ductal dilation. Spleen: Normal. No splenomegaly. Adrenal glands: Normal. No mass. Kidneys and ureters: Normal. No hydronephrosis. Stomach and bowel: Gastric bypass changes. Moderate stool burden. Appendix: No evidence of appendicitis. Intraperitoneal space: Unremarkable. No free air. No significant fluid collection. Vasculature: Unremarkable. No abdominal aortic aneurysm. Lymph nodes: Unremarkable. No enlarged lymph nodes. Urinary bladder: Unremarkable as visualized. Reproductive: Unremarkable as visualized. Bones/joints: There are degenerative changes in the visualized spine. Slight grade 1 degenerative anterolisthesis of L4 on L5. There is uncovering of the disc at the L4-L5 level and severe facet arthropathy contributing to moderate to severe canal stenosis. Soft tissues: Unremarkable. CT/CT abdomen pelvis w con* [id number] IMPRESSION: 1. No acute findings.Non acute findings as described above. 2. Slight grade 1 degenerative anterolisthesis of L4 on L5. There is uncovering of the disc at the L4-L5 level and severe facet arthropathy contributing to moderate to severe canal stenosis.
[2024-01-29] MEDS: acetaminophen 500 mg Tablet 1000 MG PO (16:06)
[2024-01-29] MEDS: doxycycline 100 MG in sodium chloride 0.9% (plus) 100 ML IV (16:17)
[2024-01-29 16:18] LABS: Add Urine Microscopic? NO; Charge for UA Resulting for Rev
[2024-01-29 16:19] LABS: Blood Urine Neg (Negative); Glucose Urine UA Norm (Normal); Ketones Urine Negative (Negative); Nitrate Urine Negative (Negative); Protein Urine Neg (Negative); Urine Appearance Clear (CLEAR); Urine Color Yellow (Yellow); pH Urine 7 (5-7)
[2024-01-29 16:20] LABS: Bilirubin Urine Neg (Negative); Leukocyte Esterase Urine Negative (Negative); Urobilinogen Urine Norm (Negative)
[2024-01-29] MEDS: iohexol 350 mg/mL 500 mL Btl (per mL) IV (16:29)
[2024-01-29 16:35] VITALS: BP 162/96; PULSE 98; O2SAT 99
[2024-01-29 17:24] LABS: Adenovirus Not Detected (NOT DETECT); Chlamydia Pneumoniae Not Detected (NOT DETECT); Coronavirus 229E,HKU1,NL63,OC4 Not Detected (NOT DETECT); Human Metapneumovirus Not Detected (NOT DETECT); Human Rhinovirus/Enterovirus Not Detected (NOT DETECT); Influenza A Not Detected (NOT DETECT); Influenza A H1 Not Detected (NOT DETECT); Influenza A H1-2009 Not Detected (NOT DETECT); Influenza A H3 Not Detected (NOT DETECT); Influenza B Not Detected (NOT DETECT); Mycoplasma Pneumoniae Not Detected (NOT DETECT); Parainfluenza Virus Type 1 Not Detected (NOT DETECT); Parainfluenza Virus Type 2 Not Detected (NOT DETECT); Parainfluenza Virus Type 3 Not Detected (NOT DETECT); Parainfluenza Virus Type 4 Not Detected (NOT DETECT); Respiratory Syncytial Virus A Not Detected (NOT DETECT); Respiratory Syncytial Virus B Not Detected (NOT DETECT); SARS-COV-2 Not Detected (NOT DETECT)
== END 2024-01-29 17:43 | disposition home or self-care (01) ==
PROVIDERS: Emergency Provider Nurse Practitioner Family; PCP Family Medicine
DX: L05.91 Pilonidal cyst without abscess (principal); I45.19 Other right bundle-branch block; I25.2 Old myocardial infarction; Z11.52 Encounter for screening for COVID-19; I10 Essential (primary) hypertension
CPT/HCPCS: 36415; 71045; 74177; 80053; 81003; 83605; 85025; 87040; 87070; 87077; 87186; 87486; 87581; 87633; 93005; 96374; 99285; J3490; J7030; Q9967

== ENCOUNTER 2024-11-19 09:52 | Outpatient (CLI) | payer OTHER, MEDICAID, SELFPAY ==
--- NOTE | 2024-11-19 10:00 | MM_ITS ---
WS: [id number] BILATERAL SCREENING DIGITAL TOMOSYNTHESIS MAMMOGRAM WITH CAD HISTORY: screening COMPARISON: 06/28/2023, 09/17/2021 Bilateral CC and MLO views with tomosynthesis and synthetic mammography submitted. Computer aided detection analyzed. Breast composition: The breasts are almost entirely fatty. No suspicious masses, microcalcifications or architectural distortion. Benign lucent centered calcification lateral LEFT breast. MM/MM scr BI tomosynthesis [id number] IMPRESSION: BI-RADS: 2 - Benign. FOLLOW UP: 1 Year Follow-up
== END 2024-11-19 09:53 | disposition home or self-care (01) ==
PROVIDERS: PCP Family Medicine; Visit Provider Family Medicine
DX: Z12.31 Encounter for screening mammogram for malignant neoplasm of breast (principal); R92.313 Mammographic fatty tissue density, bilateral breasts; R92.1 Mammographic calcification found on diagnostic imaging of breast
CPT/HCPCS: 77063; 77067

== ENCOUNTER 2025-01-31 10:35 | Outpatient (CLI) | payer OTHER, MEDICAID, SELFPAY ==
--- NOTE | 2025-01-31 10:38 | XR_ITS ---
WS: [id number] Right shoulder, 3 views, 01/31/2025 Clinical Data: chronic right shoulder pain Comparison: None. Findings: No fractures or dislocations are seen. The AC joint is normal. The adjacent right clavicle, right scapula and ribs are normal. The soft tissues are unremarkable. XR/XR shoulder RT min 2V* [id number] Impression: Negative right shoulder.
== END 2025-01-31 10:36 | disposition home or self-care (01) ==
PROVIDERS: PCP Family Medicine; Visit Provider Family Medicine
DX: M25.511 Pain in right shoulder (principal); G89.29 Other chronic pain; I10 Essential (primary) hypertension
CPT/HCPCS: 73030; 80053; 80061; 84443; 85025

== ENCOUNTER → 2025-03-01 08:39 | Outpatient (BNVA) | payer OTHER, MEDICAID, SELFPAY | PROVIDERS: PCP Family Medicine; Visit Provider Nurse Practitioner Family | DX: L81.4 Other melanin hyperpigmentation (principal); L81.1 Chloasma; L82.1 Other seborrheic keratosis; Z87.2 Personal history of diseases of the skin and subcutaneous tissue; D48.5 Neoplasm of uncertain behavior of skin; R20.8 Other disturbances of skin sensation | CPT/HCPCS: 11102; 99203 ==

== ENCOUNTER → 2025-03-20 09:41 | Outpatient (BNVA) | payer OTHER, MEDICAID, SELFPAY | PROVIDERS: PCP Family Medicine; Visit Provider Dermatology | DX: L57.8 Other skin changes due to chronic exposure to nonionizing radiation (principal); L81.4 Other melanin hyperpigmentation; Z87.2 Personal history of diseases of the skin and subcutaneous tissue; D03.62 Melanoma in situ of left upper limb, including shoulder | CPT/HCPCS: 11604; 12034; 99213 ==

== ENCOUNTER → 2025-05-27 11:22 | Outpatient (BNVA) | payer OTHER, MEDICAID, SELFPAY | PROVIDERS: PCP Family Medicine; Visit Provider Dermatology | DX: L81.4 Other melanin hyperpigmentation (principal); L57.8 Other skin changes due to chronic exposure to nonionizing radiation; D22.5 Melanocytic nevi of trunk; Z87.2 Personal history of diseases of the skin and subcutaneous tissue; Z08 Encounter for follow-up examination after completed treatment for malignant neoplasm; Z86.006 Personal history of melanoma in-situ; D48.5 Neoplasm of uncertain behavior of skin | CPT/HCPCS: 11104; 99213 ==